=== PATIENT | male | born 1960 | race Caucasian/White ===

== ENCOUNTER → 2019-09-23 | Outpatient (CLI) | payer OTHER ==
--- NOTE | 2019-09-23 12:03 | [facility] ---
MRI Cervical Spine Without Contrast History: Acute left-sided neck pain and tightness, pain into the left upper extremity and chest, cervical radiculopathy Technique: Multiplanar, multi sequential noncontrast MR imaging was performed of the cervical spine. Comparison: None Findings: There is some motion degradation. Cervical cord caliber is within normal limits without defined or expansile signal abnormality. There is mild reversal of the lordotic curvature centered near C4-5. There is very minimal posterior subluxation C4 relative to C5. Cervical vertebral body stature is overall maintained. There is mild to moderate C4-5 degenerative disc disease, also moderate degenerative disc disease C6-7, and mild disc desiccation at other levels. There is no significant focal marrow edema. There is small hemangioma of the right C3 vertebral body. C2-C3: Spinal canal and neural foramina are adequate. C3-C4: There is minimal disc osteophyte complex and bulge. Central canal is borderline about 10 mm. There is facet degenerative change. Right neural foramen is adequate. There is [id number] narrowing of the left neural foramen. C4-C5: There is minimal disc osteophyte complex and bulge. There is mild narrowing of the central canal about 9 to 10 mm. There is bilateral facet degenerative change, also degree of uncovertebral degenerative change. There is moderate to severe neural foramina compromise bilaterally. C5-C6: There is minimal disc osteophyte complex. Central canal is adequate about 12 to 13 mm. There is bilateral facet degenerative change. There is mild left and likely moderate right neural foramina compromise. C6-C7: There is posterior protrusion somewhat greater of the right paracentral region about 2 mm AP with associated annular tear with mild indentation upon the ventral thecal sac. There is buckling of the ligamentum flavum. Central canal is narrowed to about 8 mm. There is bilateral facet degenerative change, also apparently degree of uncovertebral degenerative change. There is fairly severe right and moderate to severe left neural foramina compromise. C7-T1: Neural foramina and spinal canal are adequate. Impression: 1. There is central canal stenosis about 8 mm at C6-7, to lesser degree at C4-5 and borderline narrowing at C3-4 as described. 2. Facet and uncovertebral degenerative change contributes to multilevel cervical neural foramina compromise, more significant narrowing bilaterally at C6-7 and C4-5, to a somewhat lesser degree left greater than right at C5-6 and on the left at C3-C4. 3. There is degenerative disc disease greatest C4-5 and C6-7. Electronically signed by: Wong Diaz MD (09/23/2019 12:00 PM) [id number]
== END | disposition home or self-care (01) ==
LOC: KCIC MRI 10:44
PROVIDERS: ATTEND Nurse Practitioner Family
DX: M50.121 Cervical disc disorder at C4-C5 level with radiculopathy (principal); M50.123 Cervical disc disorder at C6-C7 level with radiculopathy; M48.02 Spinal stenosis, cervical region; M25.78 Osteophyte, vertebrae
CPT/HCPCS: 72141